=== PATIENT | female | born 1990 | race Caucasian/White ===

== ENCOUNTER 2017-01-22 15:01 | Emergency (ER) | payer OTHER ==
[2017-01-22 15:13] VITALS: BP 147/91
--- NOTE | 2017-01-22 16:12 | UC ---
Complaint Female HPI - HPI Summary HPI Summary: The patient comes in today for: 1. 6 weeks and bleeding. Onset: Yesterday at 5 PM. Palliative/provocative: Nothing makes it better or worse. Quality: No pain. Region: Severity: 0/10 Time: Constant. Associated symptoms: LMP: December 07 of this year. She is a A0 female who has not seen anyone for this. She did two tests at home. Bleeding disorders: None. When she stands up there can be a gushing of blood. She will have clots about a quarter in size. She thinks that she has seen some tissue. She thinks that her blood type of O+ Fever: None Previous ignition specialist problems: NOne. * - History Of Current Complaint Chief Complaint: UCGU Stated Complaint: 6 WEEKS PREG BLEEDING Time Seen by Provider: 01/22/17 16:07 Hx Obtained From: Patient, Family/Videotape Recording Engineer Hx Last Menstrual Period: 12/07/16 - Allergies/Home Medications Allergies/Adverse Reactions: Allergies Allergy/AdvReac Type Severity Reaction Status Date / Time No Known Allergies Allergy Verified 01/22/17 15:12 Home Medications: Home Medications Vitamin [Calna] 1 tab PO 01/22/17 [History] PMH/Surg Hx/FS Hx/Imm Hx Previously Healthy: Yes Endocrine History Of: Denies: Diabetes, Thyroid Disease, Hyperthyroidism, Hypothyroidism, Dyslipidemia Cardiovascular History Of: Denies: Cardiac Disorders, Hypertension, Pacemaker/ICD, Myocardial Infarction , Congestive Heart Failure, Atrial Fibrillation, Deep Vein Thrombosis, Bleeding Disorders Respiratory History Of: Denies: COPD, Asthma, Bronchitis, Pneumonia, Pulmonary Embolism GI/ History Of: Denies: Gastroesophageal Reflux, Ulcer, Gastrointestinal Bleed, Gall Bladder Disease, Kidney Stones, Diverticulitis, Renal Disease, Urosepsis Neurological History Of: Denies: TIA, CVA, Dementia, Seizures, Migraine Psychological History Of: Reports: Anxiety - On no medication Denies: Depression, Bipolar Disorder, Schizophrenia, Post Traumatic Stress Disorder Cancer History Of: Denies: Lung Cancer, Colorectal Cancer, Breast Cancer, Prostate Cancer, Cervical Cancer Other History Of: Negative For: HIV, Hepatitis B, Hepatitis C, Anticoagulant Therapy - Surgical History Surgical History: None - Family History Known Family History: Positive: Cardiac Disease Negative: Hypertension - Social History Occupation: Employed Full-time Alcohol Use: None Substance Use Type: None Smoking Status (MU): Never Smoked Tobacco Review of Systems Constitutional: Negative Skin: Negative Eyes: Negative ENT: Negative Respiratory: Negative Cardiovascular: Negative Gastrointestinal: Negative Genitourinary: Negative All Other Systems Reviewed And Are Negative: Yes Physical Exam Triage Information Reviewed: Yes Appearance: Well-Appearing, No Pain Distress, Well-Nourished Vital Signs: Initial Vital Signs Temp 98.6 F 01/22/17 15:09 Pulse 106 01/22/17 15:09 Resp 18 01/22/17 15:09 BP 147/91 01/22/17 15:09 Pulse Ox 100 01/22/17 15:09 Eyes: Positive: Conjunctiva Clear. Negative: Discharge ENT: Positive: Hearing grossly normal. Negative: Pharyngeal erythema, Nasal congestion, Nasal drainage, TM bulging, TM dull, TM red, Tonsillar swelling, Tonsillar exudate Dental: Negative: Gross Decay/Caries @, Dental Fracture @ Neck: Positive: Supple, Nontender, No Lymphadenopathy. Negative: Nuchal Rigidity Respiratory: Positive: Chest non-tender, Lungs clear, No respiratory distress, No accessory muscle use. Negative: Crackles, Wheezing Cardiovascular: Positive: RRR, No Murmur Abdomen Description: Positive: Nontender, No Organomegaly, Soft. Negative: Distended, Guarding Musculoskeletal: Positive: Strength Intact, ROM Intact, No Edema Neurological: Positive: Alert, Muscle Tone Normal Psychological: Positive: Normal Response To Family, Age Appropriate Behavior, Consolable Skin: Negative: rashes, breakdown Complaint Female Dx - Course Course Of Treatment: Patient was told that with her bleeding, I don't know if she is having a threatened , incomplete , or partial . She was encouraged to get an ultrasound through an ER visit. She and her male soc analyst agreed and left to go to the ER at [facility] via private car. - Differential Dx/Diagnosis Provider Diagnoses: Vaginal bleeding (threatened vs incomplete vs partial ). - Physician Notifications Discussed Patient Care With: Dr. Javier Time Discussed With Above Provider: 16:29 Discharge - Discharge Plan Condition: Stable Disposition: HOME Referrals: Carmita Powell MD [Primary Care Provider] - Additional Instructions: Patient is going to the ER via private care at [facility].
== END 2017-01-22 16:29 | disposition left against medical advice (07) ==
LOC: UCEAST 15:01
DX: O20.9 Hemorrhage in early pregnancy, unspecified (principal); Z3A.01 Less than 8 weeks gestation of pregnancy; F41.9 Anxiety disorder, unspecified
CPT/HCPCS: 99212; G0463

== ENCOUNTER → 2017-02-11 06:31 | Day surgery (SDC) | payer OTHER ==
[~2017-02-11 06:31] MED LIST: Buffered Lidocaine 1% SYRIN* 3 ML/SYR SYRINGE INTRADERM ONE; DOXYcycline CAP(*) 100 MG PO ONE; Dexamethasone IV* 4 MG/ML 1 ML (4 MG) IV SLOW PU ONE; Dexamethasone IV* 4 MG/ML 1 ML (4 MG) ONE; DiMENhydriNATE IV* 50 MG/ML VIAL IV PUSH PRN; Famotidine IV* 10 MG/ML 2 ML (20 mg) IV ONE; Famotidine IV* 10 MG/ML 2 ML (20 mg) ONE; HYDROmorphone* 1 MG/ML 1 ML SYR ONE; Ibuprofen TAB* 600 MG ONE; Ibuprofen TAB* 600 MG PO SCH; Ketorolac INJ* 30 MG/ML 1 ML VIAL ONE; Lidocaine 2% PF * 5 ML VIAL ONE; Midazolam* 1 MG/ML 2 ML VIAL (2 MG) ONE; Misoprostol TAB* 200 MCG ONE; Ondansetron INJ* 2 MG/ML VIAL IV PRN; Ondansetron INJ* 2 MG/ML VIAL ONE; PROCHLORPERAZINE INJ 5 MG/ML 2 ML VIAL IV PRN; Propofol* 10 MG/ML 20 ML BTL IV PUSH ONE; Scopolamine 1.5 mg* PATCH ONE; Scopolamine 1.5 mg* PATCH TRANSDERM ONE; Scopolomine PATCH Remove* 1 NOTE MISC PATCH OFF ONE; fentaNYL* 50 MCG/ML 2 ML VIAL (100 MCG VIAL) IV PRN; fentaNYL* 50 MCG/ML 2 ML VIAL (100 MCG VIAL) ONE
[2017-02-11 09:51] VITALS: BP 126/68
--- NOTE | 2017-02-12 04:12 | OP ---
DATE OF OPERATION: 02/11/17 [facility] DATE OF : 88 SURGEON: Rose Marie Morales MD ANESTHESIOLOGIST: Dr. Issa. ANESTHESIA: General endotracheal. PRE-OP DIAGNOSIS: Missed , 6 weeks and 1/7 days. POST-OP DIAGNOSIS: Missed , 6 weeks and 1/7 days. OPERATIVE PROCEDURE: Dilation, evacuation, and curettage. ESTIMATED BLOOD LOSS: 100 cc. URINE OUTPUT: 100 cc of clear yellow urine. FLUIDS: 1000 cc of crystalloid. FINDINGS: Revealed intrauterine contents consistent with products of conception. SPECIMEN: Intrauterine contents. COMPLICATIONS: None apparent. DISPOSITION: Stable to recovery room. DESCRIPTION OF PROCEDURE: The patient was placed in dorsal lithotomy position. The perineum and vagina were prepped and draped in the sterile standard fashion. The patient was identified with universal protocol. Bladder was drained for clear yellow urine 100 cc with self cath. Self cath was removed. Sterile speculum was inserted. Cervix was visualized, grasped on the anterior lip with a single-tooth tenaculum, dilated to #8 Hegar dilator. A 7-mm curved suction curette was then used for evacuation of the intrauterine contents. Sharp curettage was then performed confirming excellent removal of intrauterine contents with no evidence of retained POC. Sharp curettage was completed. Single-tooth tenaculum was removed. 800 mcg of misoprostol was placed intravaginally. Sterile speculum was removed. All sponge, needle, instrument, and blade counts were correct throughout the case. The patient tolerated the procedure well and went to the recovery room in stable condition. [id number]/[facility] #: [id number] MTDD
== END | disposition home or self-care (01) ==
LOC: OR 06:31
PROVIDERS: ATTEND Obstetrics & Gynecology
DX: O02.1 Missed abortion (principal)
CPT/HCPCS: 88305; A9270-GY; J1100; J1170; J1885; J2250; J2405; J2704; J3010

== ENCOUNTER 2017-05-10 07:38 | Emergency (ER) | payer OTHER ==
[2017-05-10 07:57] VITALS: BP 130/80
[2017-05-10 12:18] LABS: Hematocrit 40 % (35-47); Hemoglobin 12.8 g/dl (12.0-16.0); Mean Corpuscular HGB Conc 32 g/dl (31-36); Mean Corpuscular Hemoglobin 29 pg (27-31); Mean Corpuscular Volume 91 fL (80-97); Mean Platelet Volume 9 um3 (7.4-10.4); Red Blood Count 4.39 10^6/ul (4.0-5.4); Red Cell Distribution Width 13 % (10.5-15); White Blood Count 14.5 10^3/ul (3.5-10.8)
--- NOTE | 2017-05-10 12:22 | UC ---
Will Arango Benjamin, scribed for Ann Marie Hernández MD on 05/10/17 at 0830 . Back Pain HPI - HPI Summary HPI Summary: 27yo female c/o sudden onset intense left flank pain since 5am today. Pain is less intense currently, dull ache. Pt denies cough or cold. Pt also reports a separate chronic aching back pain issue that she has been having for a few months. Pt denies any abdominal pain, but states that she is currently on her period. Pt has hx of misscarriage s/p d/c in the spring 2016, and states that her periods have been irreg since then. Takes supplements. FHx of DM. No urinary freq / urg / dysuria. Denies hematuria. No hx similar pain. No recent injury. - History of Current Complaint Chief Complaint: UCBackPain Stated Complaint: INTENSE ST FLANK PAIN Time Seen by Provider: 05/10/17 08:24 Hx Obtained From: Patient Hx Last Menstrual Period: 05/05/17 Onset/Duration: Sudden Onset, Lasting Hours - since 5am today, Still Present Timing: Constant Severity Initially: Moderate Severity Currently: Mild Pain Intensity: 8 Pain Scale Used: 0-10 Numeric Back Pain: Is Discrete @ - left flank Aggravating: Nothing Alleviating: Nothing Associated Signs And Symptoms: Positive: Negative, Flank Pain. Negative: Abdominal Pain, Pain with Weight Bearing - Allergies/Home Medications Allergies/Adverse Reactions: Allergies Allergy/AdvReac Type Severity Reaction Status Date / Time No Known Allergies Allergy Verified 02/11/17 07:03 PMH/Surg Hx/FS Hx/Imm Hx Psychological History: Anxiety Other History Of: Negative For: HIV, Hepatitis B, Hepatitis C, Anticoagulant Therapy - Surgical History Surgical History: Yes Surgery Procedure, Year, and Place: EGD and colonoscopy,. D&C for miscarriage - Family History Known Family History: Positive: Cardiac Disease, Diabetes Negative: Hypertension - Social History Occupation: Employed Full-time Lives: Alone Alcohol Use: Rare Substance Use Type: None Smoking Status (MU): Never Smoked Tobacco - Immunization History Most Recent Influenza Vaccination: 2016 Most Recent Tetanus Shot: unknown Review of Systems Constitutional: Negative, Other - see HPI Skin: Negative Eyes: Negative ENT: Negative Respiratory: Negative Cardiovascular: Negative Gastrointestinal: Other - see hpi Genitourinary: Other - see hpi Motor: Negative Neurovascular: Negative Musculoskeletal: Negative Neurological: Negative Psychological: Negative All Other Systems Reviewed And Are Negative: Yes Physical Exam Triage Information Reviewed: Yes Appearance: Well-Appearing - lying down but sits up ok, feels better. Not diaphoretic., Well-Nourished Vital Signs: Initial Vital Signs Temp 96.4 F 05/10/17 07:44 Pulse 52 05/10/17 07:44 Resp 22 05/10/17 07:44 BP 130/80 05/10/17 07:44 Pulse Ox 100 05/10/17 07:44 Vital Signs Reviewed: Yes Eye Exam: Normal ENT Exam: Normal Neck exam: Normal Neck: Positive: Supple, No Lymphadenopathy Respiratory: Positive: Chest non-tender, Lungs clear, Normal breath sounds - not tachypnea or dyspnea, No respiratory distress, No accessory muscle use Cardiovascular: Positive: RRR, No Murmur, Pulses Normal, Brisk Capillary Refill Abdomen Description: Positive: No Organomegaly, Soft, Other: - Tender mild L flank and L cva, but a "dull ache." No r/g. No point bony or near bony tenderness elicited or appreciated. No sciatic sx. +nabs, soft. nd. Bowel Sounds: Positive: Present Musculoskeletal Exam: Normal Neurological Exam: Normal Psychological Exam: Normal Skin Exam: Normal Skin: Negative: rashes Diagnostics - Laboratory Diagnostic Studies Completed/Ordered: UA: dark yellow, cloudy urine. >=1.030 specific gravity. 1+ protein, 3+ blood, otherwise negative urine. Urine test negative. Back Pain Course/Dx - Course Course Of Treatment: Reviewed pt's medications list and allergies. Blood pressure noted. Discussed Urine dip result with the pt. S/sx suspicious of renal origen (ex: kidney stone?). Will send urine cx. Will check blood work ( see orders). CT offered but understandably declines. She will start nsaid, will seek medical attention (ED) worse or new problems. Suggested the pt to drink lots of fluid. Pt declines work note. Questions answered to the best of my ability. F/u PCP, within one week if possible. - Differential Dx/Diagnosis Provider Diagnoses: Acute left flank pain Discharge - Discharge Plan Condition: Stable Disposition: HOME Patient Education Materials: Flank Pain (ED) Referrals: Carmita Powell MD [Primary Care Provider] - Additional Instructions: Please follow up with your primary care provider, Dr. Powell, next week if possible. Seek medical attention for worse or new problems in the meantime. Check urine for blood when not on your period. Drink plenty of water. Ibuprofen per packaging instructions as needed for pain / inflammation. The documentation as recorded by the Will leal Benjamin accurately reflects the service I personally performed and the decisions made by me, Ann Marie Hernández MD.
[2017-05-10 12:37] LABS: BUN/Creatinine Ratio 17.9 (8-20); C Reactive Protein 2.1 mg/L (< 5.00); Calcium 9.7 mg/dL (8.6-10.3); EGFR African American 103.8 (>60); EGFR Non-African American 80.7 (>60); Potassium 4.5 mmol/L (3.5-5.0)
[2017-05-10 13:15] LABS: Erythrocyte Sed Rate 14 mm/Hr (0-14)
--- NOTE | 2017-05-11 08:43 | UC ---
Progress - Progress Note Progress Note: Please call patient. Was seen with flank pain, no fever. White count is elevated but other labs are normal, and urine culture was negative. If she is still having pain should consider ER evaluation for follow up testing.
== END 2017-05-10 09:04 | disposition home or self-care (01) ==
LOC: UCEAST 07:38
DX: M54.5 Low back pain (principal); F41.9 Anxiety disorder, unspecified; Z32.02 Encounter for pregnancy test, result negative; R82.99 Other abnormal findings in urine
CPT/HCPCS: 36415; 80048; 81003; 84702; 85025; 85652; 86140; 87086; 99211; G0463

== ENCOUNTER 2018-01-25 11:30 | Emergency (ER) | payer OTHER ==
[2018-01-25 12:00] VITALS: BP 128/90
--- NOTE | 2018-01-25 12:08 | UC ---
Respiratory Complaint HPI - HPI Summary HPI Summary: 28 y/o female presents to the urgent care c/o productive cough, nasal congestion w/ yellowish phlegm for the past 5 days. Pt reports It started w/ the nasal congestion and now she chest congestion and wheezing since yesterday. She had low grade fever yesterday. She has taken Mucinex PO and Theraflu to alleviate symptoms. She feels fatigue w/ body aches and NOLAND. Pain is 3/10. Cough is not allowing her to sleep well at night time. LMP:01/18/2018 for only 3 days and she has been trying to get . - History of Current Complaint Chief Complaint: UCRespiratory Stated Complaint: URI Time Seen by Provider: 01/25/18 12:03 Hx Obtained From: Patient Hx Last Menstrual Period: 01/16/2018 ?: No Onset/Duration: Gradual Onset, Lasting Days - 5 days, Still Present, Worse Since - yesterday Timing: Intermittent Episodes Severity Currently: Moderate Pain Intensity: 3 - Headache Pain Scale Used: 0-10 Numeric Character: Cough: Productive, Sputum Description: - yellowish Aggravating Factors: Recumbent Position Alleviating Factors: OTC Meds Associated Signs And Symptoms: Positive: Fever - low grade at home, Chills, Wheezing, URI, Nasal Congestion Related History: Seasonal Allergies - Risk Factors Pulmonary Embolism Risk Factors: Negative Cardiac Risk Factors: Negative Pseudomonas Risk Factors: Negative Tuberculosis Risk Factors: Negative - Allergies/Home Medications Allergies/Adverse Reactions: Allergies Allergy/AdvReac Type Severity Reaction Status Date / Time No Known Allergies Allergy Verified 01/25/18 11:55 Home Medications: Home Medications Diphenhydra/Phenyleph/Acetamin [Theraflu Nt Severe Cld-Cgh Pkt] 1 each PO BEDTIME 01/25/18 [History Confirmed 01/25/18] guaiFENesin [Mucinex] 600 mg PO Q4HR 01/25/18 [History Confirmed 01/25/18] PMH/Surg Hx/FS Hx/Imm Hx Previously Healthy: Yes Other Endocrine History: Celiac disease Other History Of: Negative For: HIV, Hepatitis B, Hepatitis C, Anticoagulant Therapy - Surgical History Surgical History: Yes Surgery Procedure, Year, and Place: EGD and colonoscopy,. D&C for miscarriage - Family History Known Family History: Positive: Cardiac Disease, Diabetes Negative: Hypertension - Social History Occupation: Employed Full-time Lives: With Family Alcohol Use: Rare Substance Use Type: None Smoking Status (MU): Never Smoked Tobacco - Immunization History Most Recent Influenza Vaccination: 2016 Most Recent Tetanus Shot: unknown Review of Systems Constitutional: Fever - low grade fever at home, Chills, Other - body aches Skin: Negative Eyes: Negative ENT: Ear Ache - B/L ear pressure, Nasal Discharge - yellowish, Sinus Congestion Respiratory: Cough - yellowish phlegm, Other - wheezing Cardiovascular: Negative Gastrointestinal: Negative Genitourinary: Negative Motor: Negative Neurovascular: Negative Musculoskeletal: Negative Neurological: Headache Psychological: Negative Is Patient Immunocompromised?: No All Other Systems Reviewed And Are Negative: Yes Physical Exam - Summary Physical Exam Summary: Vital Signs Reviewed: Yes General: well developed, well nourished female sitting in the examining table w/ o any apparent distress Eyes: Positive: Conjunctiva Clear - PERRLA, EOMI, fundi grossly normal ENT: Positive: Normal ENT inspection, Hearing grossly normal, Pharynx normal, Nasal congestion - edematous and erythematous nasal mucosa, Nasal drainage - yellowish drainage, TMs normal. Negative: Tonsillar swelling, Tonsillar exudate Neck: Positive: Supple, Nontender, No Lymphadenopathy Respiratory: no orthopnea or dyspnea. Able to speak in full sentences, no retractions or accessory muscle use, no tripod position, stridor, or head bobbing. Positive breath sounds bilaterally, B/L lungs w/ scattered wheezing and rhonchi, no crackles or rales. Cardiovascular: Positive: RRR, No Murmur, Pulses Normal, Brisk Capillary Refill Abdomen Description: Positive: Nontender, No Organomegaly, Soft. Negative: CVA Tenderness (R), CVA Tenderness (L) Bowel Sounds: Positive: Present Musculoskeletal Exam: Normal Musculoskeletal: Positive: Strength Intact, ROM Intact, No Edema Neurological Exam: Normal Psychological Exam: Normal Skin Exam: Normal Triage Information Reviewed: Yes Vital Signs: Initial Vital Signs Temp 98.7 F 01/25/18 11:56 Pulse 83 01/25/18 11:56 Resp 18 01/25/18 11:56 BP 128/90 01/25/18 11:56 Pulse Ox 100 01/25/18 11:56 UC Diagnostic Evaluation - Laboratory O2 Sat by Pulse Oximetry: 100 Respiratory Course/Dx - Course Course Of Treatment: 28 y/o female presents to the urgent care c/o productive cough, nasal congestion w/ yellowish phlegm for the past 5 days. Pt reports It started w/ the nasal congestion and now she chest congestion and wheezing since yesterday. She had low grade fever yesterday. She has taken Mucinex PO and Theraflu to alleviate symptoms. She feels fatigue w/ body aches and NOLAND. Pain is 3/10. Cough is not allowing her to sleep well at night time. LMP:01/18/2018 for only 3 days and she has been trying to get .Hx obtained. Pt B/L lungs w/ scattered wheezing and rhonchi, no crackles or rales. O2Sat: 100%. test ordered: negative. Chest X-ray ordered to r/o pneumonia, Impression: No cardiopulmonary disease observed. Pt given Prednisone PO and albuterolAlbuterol Treatment to alleviate wheezing. Patient tolerated well treatment and lungs improved, mild wheezing only in posterior RT lung, O2 sat 100%. Patient prescribed Z-jennifer PO, Prednisone taper dose, and albuterol inhaler and Tessalon tabs as directed below. The patient was recommended to increase fluid intake. Take medications as recommended. Patient advised to f/u w / her PCP if not improvement of symptoms and for further evaluation sicne she may be developing asthma. Pt's BP is elevated today advised to decrease salt in diet, monitor BP and f/u with PCP for further management. Patient understood and agree w/ plan of care. - Differential Dx/Diagnosis Differential Diagnosis/HQI/PQRI: Asthma, Bronchitis, Influenza, Lower Resp Infection, Sinusitis, Other - URI Provider Diagnoses: 1- Acute bronchitis. 2-Wheezing. 3-Elevated BP w/o Hx of HTN Discharge - Sign-Out/Discharge Documenting (check all that apply): Discharge - Discharge Plan Condition: Stable Disposition: HOME Prescriptions: Albuterol HFA INHALER* [Ventolin HFA Inhaler*] 1 - 2 puff INH Q6H PRN #1 mdi PRN Reason: Wheezing Azithromyxin JENNIFER (NF) [Z-Jennifer (Zithromax) 250 mg tabs #6] 2 tab PO .TODAY, THEN 1 DAILY #6 tab Benzonatate CAP* [Tessalon 100 MG CAP*] 100 mg PO TID #21 cap predniSONE TAB* [Deltasone TAB*] 20 mg PO DAILY #8 tab Patient Education Materials: Acute Bronchitis (ED), Wheezing (ED) Forms: *Work Release Referrals: Carmita Powell MD [Primary Care Provider] - 3 Days Additional Instructions: 1-Please take full course of antibiotic to avoid resistance. Take prednisone PO starting tomorrow 2-Take Tessalon PO tabs as directed and use the albuterol inhaler to alleviate cough. Increase fluid intake, rest and eat well. 3- If symptoms do not improve or worsen or your develop SOB with fever and severe wheezing please go immediately to the ER further evaluation and treatment. 4- F/u with your PCP in 2-3 days for further management if symptoms are not improving you may be developing Asthma 5-Your BP is elevated today. please decrease salt in your diet, monitor BP and if it continues to be elevated please f/u with your PCP for further management - Billing Disposition and Condition Condition: STABLE Disposition: HOME
[2018-01-25] MEDS ORDERED: Albuterol 2.5 MG/3 ML NEB.SOL* (0.083%) INH ONE (12:19)
[2018-01-25] MEDS ORDERED: predniSONE TAB* 20 MG PO ONE (12:19)
--- NOTE | 2018-01-25 13:33 | RAD ---
Indication: Cough and congestion. 2 views of the chest including dual energy PA views demonstrates no mediastinal shift. Heart is of normal size and configuration. Lung murguia are clear. IMPRESSION: No active cardiopulmonary disease is noted.
== END 2018-01-25 13:50 | disposition home or self-care (01) ==
LOC: UCEAST 11:30
DX: J20.9 Acute bronchitis, unspecified (principal); R06.2 Wheezing; R03.0 Elevated blood-pressure reading, without diagnosis of hypertension; Z32.02 Encounter for pregnancy test, result negative; K90.0 Celiac disease
CPT/HCPCS: 71046; 84702; 99212; G0463; J7512

== ENCOUNTER 2018-10-20 18:58 | Inpatient (IN) | payer OTHER ==
[2018-10-20] MEDS ORDERED: Dinoprostone* 10 MG VAG.SUPP VAGINAL ONE (20:39)
[2018-10-20] MEDS ORDERED: Promethazine INJ(RESTRICTED)* 25 MG/ML 1 ML VIAL IM PRN (21:24)
[2018-10-20] MEDS ORDERED: Nalbuphine* 10 MG/ML 1 ML VIAL IM PRN (21:24)
[2018-10-20] MEDS ORDERED: Buffered Lidocaine 1% SYRIN* 1 ML/SYRINGE INTRADERM ONE (21:24)
[2018-10-20] MEDS ORDERED: Lactated Ringers 1000 ML Bag* 1,000 ML IV ONE (21:24)
[2018-10-20] MEDS ORDERED: Calcium Carbonate CHEW TAB* 500 MG (TUMS) PO PRN (21:31)
--- NOTE | 2018-10-20 21:48 | HP ---
General Information - Reason for Visit Patient here for cervical ripening and induction for preeclampsia - General Information Maternal Age: 28 Grav: 2 Para: 0 SAB: 1 IEA: 0 Estimated Due Date: 10/23/18 Determined By: LMP Maternal Blood Type and Rh: O Positive - Results this Serology/RPR Result: Non-Reactive Rubella Result: Immune HBsAg Result: Negative HIV Result: Negative GBS Culture Result: Negative Past Medical History Delivery History: See Records Delivery History Comment: No previous term pregnancies Pertinent Past Medical History: See Records Past Medical History Comment: Anxiety Celiac Kidney stones (05/2017, no recurrence) Pertinent Past Surgical History: See Records Past Surgical History Comment: D&C 2016 Pertinent Family History: Non-Contributory Family History Comment: DM 2 GERD anxiety Congenital heart defect, no aortic valve Heart dz Brain tumor CHF COPD Fibroids - Antepartal Records Antepartal Records: Reviewed, Complicated by: - pre eclampsia Review of Systems Constitutional: Comfortable CV Complaint: No Respiratory: Shortness of Breath: No Gastrointestinal: No Nausea/Vomiting, Soft Stool Genitourinary: No Dysuria, No Bleeding, No Leaking Fluid Musculoskeletal: No Complaint Neurological: No Headache, No Visual Changes Movement: Normal Exam Allergies/Adverse Reactions: Allergies No Known Allergies Allergy (Verified 01/25/18 11:55) BP 154/90 recheck 150/82 T 98.6 HR 86 RR 22 O2 98 - Measurements Height: 5 ft 2 in Weight: 213 lb Weight in lbs: [phone] Body Mass Index (BMI): 38.9 Pre- Weight: 170 lb Weight Gained This : 43 lbs and 0 ozs - Exam Breast: Breast Exam Deferred CVA: No CVA Tenderness Extremities: No Edema Heart: Normal Rhythm/Heart Sounds HEENT: No Significant Findings Lungs: Clear Bilaterally Rectal: Rectal Exam Deferred Reflexes: DTR 2+, - - no clonus Thyroid: - - WNL on entry to care - Abdominal Exam Abdomen Exam: Non-Tender, Fundal Height Consistent with Dates - Ultrasound/Biophysical Profile Ultrasound Status: Not Done Targeted Exam Findings Estimated Weight: 8lbs Cervical Exam: Fingertip Effacement: Thick Station: -1 Presenting Part: Vertex Membrane Status: Intact Bleeding/Discharge: None EFM Findings - External Monitor Findings Baseline Heart Rate: 130 External Monitor Findings: Accelerations Present, No Pattern of Variable or Late Decelerations, Variability Moderate Contractions: Irregular, Mild - Patient does not feel contractions, < 45 Seconds Contraction Frequency: 3-5 min Assessment/Plan - Assessment IUP @ 39+4 weeks gestation here for induction due to pre-eclampsia. No evidence metabolic acidemia. IBOW. - Obstetrical Risk Factors Obstetrical Risk Factors: PreEclampsia - Plan Plan: Induction, Cervical Ripening Plan Comment: Admit, cervidil placed. Pain management as desired. Anticipate SVB. - Date/Time of Admission Date of Admission: 10/20/18 Time of Admission: 19:55
[2018-10-20] MEDS ORDERED: Lactated Ringers 1000 ML Bag* 1,000 ML IV SCH (22:00)
--- NOTE | 2018-10-21 10:17 | PN ---
Progress Note - Progress Note Date of Service: 10/21/18 SOAP: Subjective: Pt reports feeling uterine ctx, has to breathe through some of them. Feeling good emotionally. Reports active FM. Objective: Cervidil removed. Cervical exam: FT/ 50%/ vtx/ -1/ soft (Fontenot score = 5) FHR:baseline 125/ + accels/ no decels/ moderate variability UCs:Q 3-4 minutes/ mild/ 60 seconds Membranes intact BP: 134/84 Assessment: 28 year old at 39 5/7 weeks gestation undergoing induction of labor for preeclampsia without severe features, no evidence of acidemia, cervix unfavorable for Pitocin induction, GBS negative, membranes intact. Plan: Pt will get up and shower, then we will put her back on EFM and look at ctx pattern. If ctx have spaced out now that Cervidil out, will do trial of vaginal misoprostol. If pt still lolis regularly, will do second Cervidil.
--- NOTE | 2018-10-21 11:30 | PN ---
Progress Note - Progress Note Date of Service: 10/21/18 SOAP: Subjective: Pt reports ctx have increased in frequency and intensity. Coping well. Would like to try using ball. Objective: UCs: 2-3 minutes, mild to moderate strength, lasting 40-60 minutes FHR Cat I: baseline 125/ moderate variability/ + accels/ no decels Membranes intact Assessment: 28 year old at 39 5/7 weeks gestation with preeclampsia without severe features, membranes intact, no evidence of acidemia, in apparently early labor. Plan: Will defer further cervical ripening at this time, as pt is lolis frequently. Expectant management for now, will recheck in a couple of hours, or if pt requests pain medication. Encouraged upright positions.
--- NOTE | 2018-10-21 14:21 | PN ---
Progress Note - Progress Note Date of Service: 10/21/18 SOAP: Subjective: Pt reports ctx have continued, appears uncomfortable with them. Reports active FM. Pt's mother and at bedside, supportive. Objective: UCs every few minutes FHR 130 per doppler BP 140/84 Membranes intact Assessment: Pt still lolis regularly, appears more uncomfortable. No evidence of acidemia. Plan: Will do NST, monitor ctx frequency. Then consider rechecking cervix and base decision on additional ripening/ augmentation on cervical exam and ctx pattern.
--- NOTE | 2018-10-21 16:01 | PN ---
Progress Note - Progress Note Date of Service: 10/21/18 SOAP: Subjective: Pt reports ctx increasing in intensity. Considering options for pain relief. Discussed available options with pt. Objective: Cervix: 3cm/ 60%/ soft/ -1/ vtx FHR Cat I baseline 125/ + accels/ moderate variability/ no decels BP: 149/84 (Had BP 166/83 during ctx) UCs Q 2-4 minutes Assessment: 28 year old at 39 5/7 weeks gestation with preeclampsia without severe features, in active labor, no evidence of acidemia. BPs stable at this time, although pt had an elevated BP when taken during a contraction. Coping well with ctx. Plan: Discussed options for pain relief in labor. Pt thinks she will likely get an epidural but is not ready yet. Will initiate IV access, do PEC labs. Will monitor hourly BPs, consult with MD if persistent elevation.
[2018-10-21 16:47] LABS: ABS Basophils 0 10^3/ul (0-0.2); ABS Eosinophils 0.1 10^3/ul (0-0.6); ABS Monocytes 0.6 10^3/ul (0-0.8); ABS Neutrophils 9.5 10^3/ul (1.5-7.7); ABS Nucleated RBC 0 10^3/ul; Eosinophil % 0.5 %; Hematocrit 34 % (35-47); Hemoglobin 11.5 g/dl (12.0-16.0); Lymphocyte % 8.9 %; Mean Corpuscular HGB Conc 34 g/dl (31-36); Mean Corpuscular Hemoglobin 30 pg (27-31); Mean Corpuscular Volume 87 fL (80-97); Mean Platelet Volume 9.3 fL (7.4-10.4); Nucleated Red Blood Cells % 0; Platelet Count 242 10^3/ul (150-450); Red Blood Count 3.89 10^6/ul (4.00-5.40); Red Cell Distribution Width 14 % (10.5-15); White Blood Count 11.2 10^3/ul (3.5-10.8)
[2018-10-21] MEDS ORDERED: OBEPIDURAL* 250 ML EPIDURAL ONE (16:52)
[2018-10-21 16:58] LABS: Albumin 3.4 g/dL (3.2-5.2); Albumin/Globulin Ratio 1.3 (1-3); Calcium 9.4 mg/dL (8.6-10.3); EGFR Non-African American 84.8 (>60); Globulin 2.6 g/dL (2-4); Potassium 3.9 mmol/L (3.5-5.0); Total Bilirubin 0.4 mg/dL (0.2-1.0); Uric Acid 5.2 mg/dL (2.3-6.6)
[2018-10-21] MEDS ORDERED: Famotidine TAB* 20 MG PO PRN (17:59)
[2018-10-21] MEDS ORDERED: Lactated Ringers 1000 ML Bag* 500 ML IV PRN ×2 (17:59)
[2018-10-21] MEDS ORDERED: Sodium Citrate/Citric Acid* 15 ML UDC PO PRN (17:59)
[2018-10-21] MEDS ORDERED: Lactated Ringers 1000 ML Bag* 1,000 ML IV ONE (17:59)
[2018-10-21] MEDS ORDERED: Phenylephrine IV* 40 MCG/ML 10 ML SYRINGE IV PUSH PRN ×2 (17:59)
[2018-10-21] MEDS ORDERED: OBEPIDURAL* 250 ML EPIDURAL SCH (18:00)
[2018-10-21] MEDS ORDERED: Lactated Ringers 1000 ML Bag* 1,000 ML IV SCH (18:00)
--- NOTE | 2018-10-21 20:43 | PN ---
Progress Note - Progress Note Date of Service: 10/21/18 SOAP: Subjective: Pt comfortable with epidural. She is sleeping intermittently. Objective: Cervix: 5cm/ 80%/ -1/ vtx/ bulging bag FHR:120 baseline, moderate variability, + accels, no decels UCs:2-5 minutes BP- 122/63 Labs WNL Assessment: 28 year old at 39 5/7 weeks gestation in active labor, with preeclampsia without severe features, no evidence of acidemia, comfortable with epidural. Plan: Considered AROM, but deferred until head lower in pelvis. Will recheck in a couple hours, consider Pitocin augmentation if cervical change inadequate.
--- NOTE | 2018-10-21 23:14 | PN ---
Progress Note - Progress Note Date of Service: 10/21/18 SOAP: Subjective: Pt feels more pressure with ctx, still comfortable. Feels good to be sitting upright. Denies headache, vision changes. Objective: Cervical exam: 6cm/90%/ -1/ vtx/ bulging bag of lin UCs:Q 3-5 minutes FHR:baseline 115/ + accels/no decels/ moderate variability BP:140/75 Assessment: Pt continuing to make progress. FHR Cat I, no evidence of acidemia. Membranes intact. Plan: Recheck cervix in 2-3 hours. Consider AROM and/ or Pitocin as needed.
[2018-10-22] MEDS ORDERED: Oxytocin in LR* 20 UNITS/1,000 ML BAG IVPB ONE (00:37)
--- NOTE | 2018-10-22 00:44 | PN ---
Progress Note - Progress Note Date of Service: 10/22/18 SOAP: Subjective: Pt remains comfortable with epidural Objective: UCs have spaced out to every 6-8 minutes FHR baseline 120, moderate variability, + accels, no decels Cervical exam deferred BP 119/69, Temp 98.2 Membranes intact, cervical exam deferred Assessment: Ctx have spaced out. No evidence of acidemia. Plan: Initiate low dose Pitocin to increase ctx strength and frequency. Will wait to do next cervical exam until pt has been on Pitocin for at least 1- 2 hours, or if she feels urge to push or other indication for exam.
[2018-10-22] MEDS ORDERED: Oxytocin in LR* 20 UNITS/1,000 ML BAG IVPB SCH (01:00)
--- NOTE | 2018-10-22 02:40 | PN ---
Progress Note - Progress Note Date of Service: 10/22/18 SOAP: Subjective: Pt sleeping at this time, still comfortable with epidural. Objective: Pitocin at 8 mu/ min UCs Q 2-4 minutes FHR baseline 115, moderate variability, + accels, occasional isolated variable decel Membranes intact BP 108/59 Assessment: Ctx pattern appears to be becoming more adequate, no evidence of acidemia. BPs stable. Plan: Continue Pitocin augmentation. Will recheck cervix in 1-2 hours, consider AROM at that time.
--- NOTE | 2018-10-22 04:38 | PN ---
Progress Note - Progress Note Date of Service: 10/22/18 SOAP: Subjective: Pt reports feeling increased pressure with contractions, still fairly comfortable. Objective: Cervical exam: Probably complete (bulging bag making it slightly difficult to feel all the way around)/ 0 station AROM performed to clear fluid FHR:130 baseline/ moderate variability/ + accels/ no decels UCs: 2-3 minutes BP: 119/75 Assessment: 28 year old with preeclampsia without severe features, membranes ruptured, no evidence of acidemia, at or close to full dilation Plan: AROM performed with pt's consent. Will labor down until pt feeling more pressure, then do trial of pushing. If pt does not begin to feel pressure, will do trial of pushing in 1-2 hours.
--- NOTE | 2018-10-22 06:32 | PN ---
Progress Note - Progress Note Date of Service: 10/22/18 SOAP: Subjective: Pt with increased pressure, denies urge to push. Relatively comfortable. Objective: Cervical exam: Dilation complete/ +1/ vtx FHR: baseline 115/ + accels/ no decels/ moderate variability UCs: Q2 minutes BP 154/85 Clear fluid Assessment: Pt complete and ready to begin pushing. No evidence of acidemia. BP elevated, but not above level requiring medication. Plan: Trial of pushing showed pt pushing effectively. Will continue to push. Anticipate .
[2018-10-22] MEDS ORDERED: Dibucaine 1% 28.35 GM TUBE PR PRN (08:03)
[2018-10-22] MEDS ORDERED: Acetaminophen TAB* 325 MG PO PRN (08:03)
[2018-10-22] MEDS ORDERED: Witch Hazel PAD* JAR TOPICAL PRN (08:03)
[2018-10-22] MEDS ORDERED: Glycerin ADULT SUPP PR PRN (08:03)
--- NOTE | 2018-10-22 08:52 | PROCNOTE ---
[facility] OB: Delivery Note - Delivery A Date of : 10/22/18 Time of : 07:46 Gibson Sex: Female Score 1 Minute: 9 Score 5 Minutes: 9 Gestational Age in Weeks and Days at Delivery: 39 Weeks and 6 Days Delivery Method: Spontaneous Vaginal Labor: Induced Did Patient attempt ?: N/A, No Previous Amniotic Fluid: Clear Estimated Blood Loss: 300 Anesthesia/Analgesia: CEI for Labor Delivered By: Stephanie Vásquez - Nursery Level of Nursery: Regular/Bedside - Perineum Perineal Injury: Periurethral Laceration, 2nd Degree Perineal Injury Comment: 2nd degree and right periurethral Perineal Repair: By Delivering Practioner - Events Delivery Events of Note: Pitocin During Labor - Additional Delivery Notes Additional Delivery Notes: Pt admitted to Labor and Delivery for induction of labor at 39 5/7 weeks gestation for preeclampsia without severe features. Pt had one dose of cervidil after which she remained at a finger tip dilation; however, after cervidil was removed, pt continued to contract and proceeded to go into labor. Pt made steady progress throughout the day. She eventually requested and received an epidural with good pain relief. Pt continued to make steady progress, and was eventually found to be complete with a bulging bag of lin. AROM performed with pt's consent. Pt was not feeling any pressure at that time, and baby was still at about 0 station, so pt labored down for a while. When pt was recehcked , infant at +2 and pt feeling more pressure. Pt coached on pushing and pushed with good effort and steady descent. Pt brought to , and was then coached through slow controlled delivery of the head. Shoulders followed easily and placed on maternal abdomen, dried and stimulated. Infant then with vigorous cry, HR>100. After cord pulsation ceased, cord clamped x2 and cut by pt's mother. Placenta delivered spontaneously, aug[place]in side with trailing membranes, teased out with Mariann clamp. Pitocin increased to 250 cc/ hr. Fundus firm and bleeding within normal limits. Inspection of the perineum revealed second degree perineal laceration as well as right upper labial/ periurethral laceration (repaired) and left upper labial abrasion (hemostatic, not repaired) . Pt and infant stable at this time, anticipate normal course.
[2018-10-22] MEDS ORDERED: Lactated Ringers 1000 ML Bag* 1,000 ML IV SCH (09:00)
[2018-10-22] MEDS: Ibuprofen TAB* 600 MG PO PRN ×3 (10:20→22:30)
[2018-10-22] MEDS: Simethicone TAB* 80 MG TAB.CHEW PO SCH ×4 (12:06→20:54)
[2018-10-22] MEDS: Docusate CAP* 100 MG PO SCH ×3 (12:06→20:39)
[2018-10-22] MEDS ORDERED: Witch Hazel PAD* JAR ONE (16:00)
[2018-10-23] MEDS: Ibuprofen TAB* 600 MG PO PRN ×3 (04:50→19:10)
[2018-10-23 07:09] LABS: ABS Basophils 0 10^3/ul (0-0.2); ABS Eosinophils 0.1 10^3/ul (0-0.6); ABS Lymphocytes 1.6 10^3/ul (1.0-4.8); ABS Monocytes 0.8 10^3/ul (0-0.8); ABS Neutrophils 7.3 10^3/ul (1.5-7.7); ABS Nucleated RBC 0 10^3/ul; Eosinophil % 1.4 %; Hematocrit 30 % (35-47); Hemoglobin 10.1 g/dl (12.0-16.0); Lymphocyte % 16.6 %; Mean Corpuscular HGB Conc 34 g/dl (31-36); Mean Corpuscular Hemoglobin 30 pg (27-31); Mean Corpuscular Volume 88 fL (80-97); Mean Platelet Volume 8.5 fL (7.4-10.4); Nucleated Red Blood Cells % 0; Platelet Count 218 10^3/ul (150-450); Red Blood Count 3.39 10^6/ul (4.00-5.40); Red Cell Distribution Width 15 % (10.5-15); White Blood Count 9.9 10^3/ul (3.5-10.8)
[2018-10-23] MEDS: Docusate CAP* 100 MG PO SCH ×3 (09:02→20:09)
[2018-10-23] MEDS: Simethicone TAB* 80 MG TAB.CHEW PO SCH ×2 (10:12→13:31)
[2018-10-23] MEDS: Ferrous Gluconate TAB* 324 MG TAB PO SCH ×2 (10:12→20:10)
[2018-10-24] MEDS: Ibuprofen TAB* 600 MG PO PRN (08:10)
[2018-10-24] MEDS: Docusate CAP* 100 MG PO SCH (08:10)
[2018-10-24 09:53] VITALS: BP 143/89
== END 2018-10-24 11:25 | disposition home or self-care (01) | DRG 807 ==
LOC: MCHOBOUT 18:58 → MCHOB 19:55
PROVIDERS: ADMIT Midwife; ATTEND Advanced Practice Midwife
PROC: 10E0XZZ Delivery of Products of Conception, External Approach (ICD-10-PCS; principal; 2018-10-22)
PROC: 0KQM0ZZ Repair Perineum Muscle, Open Approach (ICD-10-PCS; 2018-10-22)
PROC: 3E033VJ Introduction of Other Hormone into Peripheral Vein, Percutaneous Approach (ICD-10-PCS; 2018-10-22)
PROC: 10907ZC Drainage of Amniotic Fluid, Therapeutic from Products of Conception, Via Natural or Artificial Opening (ICD-10-PCS; 2018-10-22)
DX: O14.94 Unspecified pre-eclampsia, complicating childbirth (principal); Z37.0 Single live birth; O70.1 Second degree perineal laceration during delivery; O99.344 Other mental disorders complicating childbirth; F41.9 Anxiety disorder, unspecified; O99.62 Diseases of the digestive system complicating childbirth; K90.0 Celiac disease; Z3A.00 Weeks of gestation of pregnancy not specified
CPT/HCPCS: 36415; 80053; 84550; 85025; 86850; 86900; 86901; A9270-GY; J2300; J2550